=== PATIENT | female | born 1955 | race Caucasian/White ===

== ENCOUNTER 2021-01-06 08:12 | Emergency (ER) | payer OTHER ==
[~2021-01-06] VITALS: Ht 162.6 cm; Wt 109.0 kg
--- NOTE | 2021-01-06 08:43 | PHYS DOC ---
Past History Past Medical History: Diabetes, High Cholesterol, Hypertension Adult General HPI HPI Patient is a 65-year-old female presenting for suspect stroke. Patient reports she has extensive history of high blood pressure, noninsulin-dependent type 2 diabetes, and prior CVA suffered in July of this year that was ischemic in nature and did not require TPA. States she has no residual deficits from that stroke but does admit that she has had right eye vision problems that have been ongoing for past 3 weeks with unknown etiology in which her peripheral vision on the right side using her right eye only is distorted. States she is currently visiting from [place], she reports last known well time was yesterday evening at 7 PM. Reports without any known inciting event, trauma, ingestion, fall, or other exposures feeling right upper and right lower extremity weakness and vague gait abnormality. She reports she went to bed and woke up several times throughout the night with ongoing symptoms. Symptoms persisted this morning prompting her to notified daughter whom she is visiting who ultimately brought her in for evaluation. Patient does admit that she is not vaccinated against COVID-19 and is currently in the household with a known COVID-19 individual who is self quarantine to the basement. She takes 325 mg aspirin daily Review of Systems Review of Systems Fourteen body systems of review of systems have been reviewed. See HPI for pertinent positives and negative responses, other greer all other systems are negative, non-pertinent or non-contributory Physical Exam Physical Exam General: Appears well, non toxic, and comfortable Skin: Warm, dry. Normal for ethnicity. HEENT: Atraumatic. PERRLA. Moist mucous membranes. Upper dentures in place Neck: Trachea midline. Normal ROM. Respiratory: Normal WOB. CTAB w/o w/r/r. No tachypnea. Cardiovascular: Regular rate and rhythm. Normal peripheral perfusion. No edema. Abdomen: Soft. Non tender. No distension. Back: Normal ROM. Musculoskeletal: No swelling or deformity. Neuro: Alert and oriented x 4. MAEE. GCS 15. Normal FNF. Negative pronator drift. Normal heel to caballero. Normal [place]. CN II-XII intact. Normal strength and sensation. Normal speech. Psych: Normal affect and mood. Current Patient Data Vital Signs Vital Signs Date Time Temp Pulse Resp B/P (MAP) Pulse Ox O2 Delivery O2 Flow Rate FiO2 01/06/21 08:12 98.2 106 20 162/81 (108) 98 Room Air Vital Signs Date Time Temp Pulse Resp B/P (MAP) Pulse Ox O2 Delivery O2 Flow Rate FiO2 01/06/21 08:12 98.2 106 20 162/81 (108) 98 Room Air Lab Results Laboratory Tests Test 01/06/21 08:32 Glucose (Fingerstick) 178 mg/dL (70-99) H EKG EKG EKG ordered and interpreted by myself at 0833 hrs. as sinus tachycardia at 108 bpm, unremarkable intervals, left axis deviation, no obvious ischemic findings, no STEMI Radiology/Procedures Radiology/Procedures CT HEAD INDICATION: Reason: Right upper extremity, right lower extremity motor weakness COMPARISON: None Available. Exposure: One or more of the following individualized dose reduction techniques were utilized for this examination: 1. Automated exposure control 2. Adjustment of the mA and/or kV according to patient size 3. Use of iterative reconstruction technique TECHNIQUE: 5 mm contiguous axial images were obtained from the skull base to the vertex in both bone and soft tissue algorithm. FINDINGS: There is a hypodensity identified in the left cerebellum measuring 2.5 cm.. No evidence of acute intracranial hemorrhage. . No mass effect or midline shift. Ventricular size is appropriate. Basal cisterns are patent. No fractures identified.Walker-white differentiation is preserved.Globes and orbits are within normal limits. Paranasal sinuses and mastoid air cells are clear. IMPRESSION: A 2.5 cm hypodensity identified in the left cerebellum could be infarct or neoplasm. Recommend MRI for further evaluation. FOR INTERNAL CODING PURPOSES Critical result: Findings discussed with Dr. Huggins at 01/06/2021 8:50 AM. RESULT CODE: (C) Electronically signed by: Paulo Villavicencio MD (01/06/2021 8:57 AM) [id number] /////////////////////////////////////////////////// AP chest. HISTORY: Code stroke AP view was taken of the chest. Lungs are free of infiltrates. Heart is normal in size. There is no pleural effusion. IMPRESSION: 1. No acute chest disease. Electronically signed by: Blayne Fajardo MD (01/06/2021 9:10 AM) [id number] /////////////////////// Examination: CT angiography head and neck with IV contrast COMPARISON: CT head same day exam History: Right upper extremity, right lower extremity motor weakness TECHNIQUE: Axial CT angiographic images of the head and neck were performed with IV contrast. Coronal and sagittal 3-D MIP reformats are performed. 3-D Volumetric reformats of the carotids and [place] of [place]ke[place] were performed. Exposure: One or more of the following individualized dose reduction techniques were utilized for this examination: 1. Automated exposure control 2. Adjustment of the mA and/or kV according to patient size 3. Use of iterative reconstruction technique Stenosis calculations for CT, MR, and conventional angiography are based upon measurements of the distal ICA diameter in accordance with the NASCET methodology. Stenosis calculations for carotid ultrasound studies are derived from validated velocity criteria which are known to correlate with the NASCET methodology. FINDINGS: The origin of the great vessels from the arch of the aorta grossly appears u nremarkable. Moderate atherosclerotic calcification identified in the proximal right innominate artery, left common carotid artery. Moderate atherosclerotic calcifications identified in the bilateral carotid bulbs and the proximal bilateral internal carotid arteries. The bilateral internal carotid arteries are patent. The bilateral middle cerebral arteries, anterior cerebral arteries are patent. The bilateral vertebral arteries are patent. The basilar artery is patent. origin of the right posterior cerebral artery. The bilateral posterior cerebral arteries are patent. Hypodensity identified in the left cerebellum as described on CT head IMPRESSION: 1. No evidence of occlusive thrombus or aneurysm identified in the visualized intracranial and neck arteries. 2. Hypodensity identified in the left cerebellum as described on CT head. Electronically signed by: Paulo Villavicencio MD (01/06/2021 9:47 AM) [id number] Heart Score C/O Chest Pain: No HEART Score for Chest Pain: HEART Score for Chest Pain Response (Comments) Value History Slighlty/Non-Suspicious 0 ECG Normal 0 Age >45 - < 65 1 Risk Factors >3 Risk Factors or Hx CAD 2 Troponin < Normal Limit 0 Total 3 Risk Factors: Risk Factors: DM, Current or recent (<one month) smoker, HTN, HLP, family history of CAD, obesity. Risk Scores: Risk Factors: DM, Current or recent (<one month) smoker, HTN, HLP, family history of CAD, obesity. Course & Med Decision Making Course & Med Decision Making Airway patent, breathing unlabored, IV access and vitals obtained which were grossly unremarkable. [id number] glucose 178. NIH stroke scale 0. Patient outside of 4-hour window of last known well for any TPA intervention Comprehensive HPI, physical exam and work-up performed concerning for a 2.5 cm hypodensity in left cerebellar region, radiology questions infarct versus neoplasm Patient initially presented with right upper extremity and right lower extremity motor weakness but denies the symptoms since ER arrival. Complains of ongoing gait instability without falls I contacted [facility], [facility], and [facility] in attempt to transfer patient for MRI and neurology consultation but all facilities full due to current COVID-19 pandemic [facility] finally contacted and accepted patient transfer for admission and further inpatient care. I did notify them of the fact that patient is unvaccinated against COVID-19 with negative rapid. PCR is pending. Covid+ individual at home but is quarantined to basement, patient has not had contact I have updated patient and daughter at bedside on need for hospital transfer and all conversations above, they remained amenable to plan of care. All questions and concerns addressed prior to hospital transfer via EMS Dragon Disclaimer Dragon Disclaimer This electronic medical record was generated, in whole or in part, using a voice recognition dictation system. NIH Stroke Scale: NIH Stroke Scale Response (Comments) Value Level of Consciousness: 0 Alert/Responsive 0 LOC Questions: 0 Answers both correctly 0 LOC Commands: 0 Performs both tasks 0 Best Gaze: 0 Normal 0 Visual: 0 No visual loss 0 Facial Palsy: 0 Normal, symmetrical 0 Motor - Left Arm 0 No drift 0 Motor - Right Arm 0 No drift 0 Motor - Left Leg 0 No drift 0 Motor: Right Leg 0 No drift 0 Limb Ataxia: 0 Absent 0 Sensory: 0 No loss 0 Best Language: 0 Normal 0 Dysathria: 0 Normal 0 Extinction and Inattention: 0 Normal 0 Total 0 Departure Departure: Impression: Primary Impression: Cerebellar infarct Additional Impression: History of cerebrovascular accident (CVA) due to ischemia [facility] Admitting Physician: Other (Dr Ibanez) Condition: STABLE Referrals: NON,STAFF (PCP) Problem Qualifiers TOM HUGGINS 14, 2021 08:43
[2021-01-06] MEDS ORDERED: IV NORMAL SALINE 1,000ML 1,000 ML IV SCH (08:45)
--- NOTE | 2021-01-06 08:59 | RAD ---
CT HEAD INDICATION: Reason: Right upper extremity, right lower extremity motor weakness COMPARISON: None Available. Exposure: One or more of the following individualized dose reduction techniques were utilized for thi s examination: 1. Automated exposure control 2. Adjustment of the mA and/or kV according to patient size 3. Use of iterative reconstruction technique TECHNIQUE: 5 mm contiguous axial images were obtained from the skull base to the vertex in both bone and soft tissue algorithm. FINDINGS: There is a hypodensity identified in the left cerebellum measuring 2.5 cm.. No evidence of acute intracranial hemorrhage. . No mass effect or midline shift. Ventricular size is appropriate. Basal cisterns are patent. No fractures identified.Walker-white differentiation is preserved.Globes and orbits are within normal l imits. Paranasal sinuses and mastoid air cells are clear. IMPRESSION: A 2.5 cm hypodensity identified in the left cerebellum could be infarct or neoplasm. Recommend MRI fo r further evaluation. FOR INTERNAL CODING PURPOSES Critical result: Findings discussed with Dr. Huggins at 01/06/2021 8:50 AM. RESULT CODE: (C) Electronically signed by: Paulo Villavicencio MD (01/06/2021 8:57 AM) [id number]
--- NOTE | 2021-01-06 09:13 | RAD ---
AP chest. HISTORY: Code stroke AP view was taken of the chest. Lungs are free of infiltrates. Heart is normal in size. There is no p leural effusion. IMPRESSION: 1. No acute chest disease. Electronically signed by: Blayne Fajardo MD (01/06/2021 9:10 AM) [facility]
[2021-01-06] MEDS ORDERED: IOHEXOL 350 MG/ML 100 ML VIAL. IV ONE (09:15)
[2021-01-06 09:18] LABS: BASO % 0 % (0-3); EOS # 0.1 x10^3/uL (0.0-0.7); EOS % 1 % (0-3); HEMATOCRIT 37.8 % (36.0-47.0); HEMOGLOBIN 12.5 g/dL (12.0-15.5); LYMPH % 20 % (24-48); MEAN CORPUSCULAR HEMOGLOBIN 31 pg (25-35); MEAN CORPUSCULAR HGB CONC 33 g/dL (31-37); MEAN CORPUSCULAR VOLUME 92 fL (79-100); MONO # 0.6 x10^3/uL (0.0-1.1); MONO % 6 % (0-9); NEUT % 72 % (31-73); PLATELET COUNT 281 x10^3/uL (140-400); RED CELL DISTRIBUTION WIDTH 14.1 % (11.5-14.5); WHITE BLOOD COUNT 9.8 x10^3/uL (4.0-11.0)
[2021-01-06 09:22] LABS: CALCIUM 8.7 mg/dL (8.5-10.1); CREATININE 0.8 mg/dL (0.6-1.0); POTASSIUM 4.3 mmol/L (3.5-5.1)
[2021-01-06] MEDS ORDERED: CONTRAST GIVEN. MC PRN (09:30)
--- NOTE | 2021-01-06 09:49 | RAD ---
Examination: CT angiography head and neck with IV contrast COMPARISON: CT head same day exam History: Right upper extremity, right lower extremity motor weakness TECHNIQUE: Axial CT angiographic images of the head and neck were performed with IV contrast. Coronal and sagittal 3-D MIP reformats are performed. 3-D Volumetric reformats of the carotids and [place] of [place]ke[place] were performed. Exposure: One or more of the following individualized dose reduction techniques were utilized for thi s examination: 1. Automated exposure control 2. Adjustment of the mA and/or kV according to patient size 3. Use of iterative reconstruction technique Stenosis calculations for CT, MR, and conventional angiography are based upon measurements of the dis dennis ICA diameter in accordance with the NASCET methodology. Stenosis calculations for carotid ultraso und studies are derived from validated velocity criteria which are known to correlate with the NASCET methodology. FINDINGS: The origin of the great vessels from the arch of the aorta grossly appears unremarkable. Moderate ath erosclerotic calcification identified in the proximal right innominate artery, left common carotid ar allen. Moderate atherosclerotic calcifications identified in the bilateral carotid bulbs and the proxi mal bilateral internal carotid arteries. The bilateral internal carotid arteries are patent. The bila teral middle cerebral arteries, anterior cerebral arteries are patent. The bilateral vertebral arteri es are patent. The basilar artery is patent. origin of the right posterior cerebral artery. The bilateral posterior cerebral arteries are patent. Hypodensity identified in the left cerebellum as described on CT head IMPRESSION: 1. No evidence of occlusive thrombus or aneurysm identified in the visualized intracranial and neck arteries. 2. Hypodensity identified in the left cerebellum as described on CT head. Electronically signed by: Paulo Villavicencio MD (01/06/2021 9:47 AM) [id number]
--- NOTE | 2021-01-06 11:22 | EKG ---
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
[2021-01-06 13:25] VITALS: BP 163/82
== END 2021-01-06 13:55 | disposition short-term general hospital (02) ==
LOC: ER 08:12
DX: I63.9 Cerebral infarction, unspecified (principal); E11.9 Type 2 diabetes mellitus without complications; E78.00 Pure hypercholesterolemia, unspecified; I10 Essential (primary) hypertension; Z20.822 Contact with and (suspected) exposure to COVID-19; Z86.73 Personal history of transient ischemic attack (TIA), and cerebral infarction without residual deficits
CPT/HCPCS: 36415; 70450; 70496; 70498; 71045; 80048; 82947; 84484; 85025; 87426; 93005; 96360; 99285; C9803; J7030; U0003